=== PATIENT | female | born 1980 | race Caucasian/White ===

== ENCOUNTER 2017-12-30 22:07 | Outpatient (CLI) | payer BC, OTHER ==
[2017-12-30 22:40] VITALS: BP 167/96; PULSE 97; RESP 16; TEMP 98
[2017-12-30 23:00] LABS: Appearance,Urine Clear (Clear); Bacteria,Urine Few /hpf; Bilirubin,Urine Negative (Negative); Blood,Urine Negative (Negative); Color,Urine Yellow; Glucose,Urine (UA) Negative (Negative); Ketones,Urine Negative (Negative); Leukocyte Esterase,Urine Moderate (Negative); Mucus,Urine Rare /hpf; Nitrite,Urine Negative (Negative); PH, Urine 6.5 (5.0-8.0); Protein,Urine Trace (Negative); RBC,Urine 9 /hpf (0-5); Specific Gravity,Urine 1.017 (1.001-1.035); Squamous Epithelial Cell,Urine 2 /hpf (0-4); Urobilinogen,Urine <2.0 mg/dL (<2.0); WBC,Urine 14 /hpf (0-5)
[2017-12-30 23:00] LABS: Basophils % (A) 0 %; Eosinophils # (A) 0.2 k/uL (0-0.7); Eosinophils % (A) 1 %; HCT 35.7 % (34.0-46.0); HGB 11.9 gm/dL (11.4-16.0); Lymphocytes # (A) 2.6 k/uL (1.0-4.8); Lymphocytes % (A) 17 %; MCH 30.3 pg (25.0-35.0); MCHC 33.2 g/dL (31.0-37.0); MCV 91.1 fL (80.0-100.0); Mean Platelet Volume 9.6; Monocytes # (A) 0.8 k/uL (0-1.0); Monocytes % (A) 5 %; Neutrophils # (A) 11.8 k/uL (1.3-7.7); Neutrophils % (A) 75 %; Platelet Count 266 k/uL (150-450); RBC 3.92 m/uL (3.80-5.40); RDW 13.4 % (11.5-15.5); WBC 15.6 k/uL (3.8-10.6)
[2017-12-30 23:24] LABS: ALT 41 U/L (9-52); AST 33 U/L (14-36); Blood Urea Nitrogen 13 mg/dL (7-17); LDH 634 U/L (313-618); Uric Acid 5.2 mg/dL (3.7-7.4)
--- NOTE | 2017-12-31 06:42 | P.MSEPDOC ---
Presenting Problems - Arrival Data Date of Arrival on Unit: 12/30/17 Time of Arrival on Unit: 22:07 Mode of Transport: Ambulatory - Complaint OB-Reason for Admission/Chief Complaint: Other Comment: labial cyst Medical History - Information : 3 Para: 2 Term: 1 : 1 Abortions: Spontaneous or Elective: 0 Number of Living Children: 3 - Gestational Age Gestational Age by ANDI (wks/days): 36 Weeks and 0 Days - History Complications: Smoker Comment: hx preeclampsia Review of Systems - Review of Systems Constitutional: No problems Breast: No problems ENT: No problems Cardiovascular: No problems Respiratory: No problems Gastrointestinal: No problems Genitourinary: No problems Musculoskeletal: No problems Neurological: No problems Skin: No problems Vital Signs - Temperature Temperature: 98.0 F Temperature Source: Tympanic - Pulse Right Brachial Pulse Rate: 97 Pulse Assessment Method: Automatic Cuff - Respirations Respiratory Rate: 16 Oxygen Delivery Method: Room Air - Blood Pressure Right Arm Blood Pressure: 167/96 Blood Pressure Mean: 119 Blood Pressure Source: Automatic Cuff Medical Screen Scoring (Pre) - Cervical Exam Dilation: Exam Deferred Effacement: Exam Deferred Membranes: Intact - Uterine Contractions Frequency: N/A Duration: N/A Intensity: N/A - Maternal Vital Signs Maternal Temperature: N/A Maternal Blood Pressure: N/A Signs of Preeclampsia: N/A Maternal Respirations: N/A - Pain Assessment Pain Location and Character: Perineal Pain Scale Used: Numeric (1 - 10) Pain Intensity: 8 Pain Management Goal: 2 Pain Description: *Acute Pain Radiation Location: na Pain Frequency: Constant Pain Duration: 1 Pain Duration Units: Days Pain Behavior: Vocalization Pain Aggravating Factors: Activity Non-Pharmacological Interventions: Position/Reposition - Maternal Trauma Maternal Trauma: N/A - Assessment Baseline FHR: 125 Heart Rate - NICHD Category: Category I (Normal) = 0 NST: Reactive Station: N/A - Total Score Total Score (Pre): 0 - Level of Risk Level of Risk: N/A Physician Notification (Pre) - Physician Notified Physician Notified Date: 12/30/17 Physician Notified Time: 22:39 Physician/Practitioner Notifed:: Dr. Carrasco Spoke With: Dr. Carrasco New Order Received: Yes Physician Notification (Post) - Physician Notified Physician Notified Date: 12/30/17 Physician Notified Time: 23:41 Physician/Practitioner Notified:: Luna Spoke With: Luna New Order Received: Yes (discharge to follow up with physician, call immediately ) - Notification Comment Comment: pt instructed to call physician immediately upon discharge, states there is no option to leave message for director of education and training physician. Pt states she will go to [facility] her in [facility] if feels she needs further care for cyst. Disposition - Disposition OB Disposition: Discharge to home, Written follow up instructions reviewed Discharge Date: 12/30/17 Discharge Time: 23:55 I agree with the RN Medical Screening Exam: Yes Risk & Benefit of care provided described in d/c instruction: Yes Diagnosis: GESTATIONAL HTN W/O SIGNIFICANT PROTEINURIA, THIRD TRIMESTER (See progress note.)
--- NOTE | 2017-12-31 06:55 | P.PN ---
Progress Note - Text Progress Note Date: 12/31/17 Patient presented last evening for evaluation of a Bartholin's cyst that has been treated by Dr. Richard [facility]. Patient apparently is 36 weeks [address] Richard several times this week at [facility] for evaluation and treatment of a Bartholin's cyst and also apparently Dr. Richard has been following her for gestational hypertension. Patient reports that a Word catheter was placed and then was removed due to excessive pain. She apparently presented back to Dr. Richard and it was removed at that time. Patient subsequently re-presented to the [facility] today wanting another catheter placed however they stated they did not have a catheter and therefore she came here thinking that she can get a catheter placed. Patient did have an elevated blood pressure on admission however this quickly came down to 130s to 140s over 80s over 90s. Patient is asymptomatic. Patient states that Dr. Richard been following her blood pressure and had a 24- hour urine this week that was in the 200 mg range. I did repeat preeclampsia labs last evening, and they were normal. There is no evidence of preeclampsia at this time and no evidence of maternal/ compromise. Patient certainly does have gestational hypertension and although at this time does not require treatment, most likely will need to proceed with delivery at 37 weeks. This decision of course will be made by her primary bench technician Dr. Richard. Patient was instructed strictly to follow up with Dr. Richard in the next 24 hours for continued monitoring and care. Patient was also instructed to follow up as directed by her primary bench technician for care of her Bartholin's cyst. Patient was felt to be stable for discharge home, again to follow up with her primary physician in the next 24 hours.
== END 2017-12-30 23:41 | disposition home or self-care (01) ==
LOC: FBPOP 22:07
PROVIDERS: ATTEND Obstetrics & Gynecology
DX: O13.3 Gestational [pregnancy-induced] hypertension without significant proteinuria, third trimester (principal); O34.83 Maternal care for other abnormalities of pelvic organs, third trimester; Z3A.36 36 weeks gestation of pregnancy
CPT/HCPCS: 59025; 81001; 82565; 83615; 84450; 84460; 84520; 84550; 85025; 99215